=== PATIENT | female | born 1995 | race Caucasian/White ===

== ENCOUNTER 2018-05-16 08:50 | Inpatient (IN) ==
--- NOTE | 2018-05-16 09:28 | ED ---
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 Spencer Chief Complaint: Contractions History of Present Illness: 23-year-old at 39+ weeks presents complaining of contractions. care with Dr. Power. Patient and her significant other ate yesterday at [employer] he felt ill right away she did not feel well this morning and began having contractions. Obstetrical history stable thrombocytopenia. 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 Weeks Gestation:: 39 Para: 0 : 1 Review of Systems All other systems reviewed negative except as stated in HPI Medications and Allergies Allergies Allergy/AdvReac Type Severity Reaction Status Date / Time No Known Allergies Allergy Verified 05/16/18 10:26 Exam Vital signs: Vital Signs 05/16/18 09:08 05/16/18 09:13 Temperature 97.8 F Pulse Rate 76 78 Respiratory Rate 18 Blood Pressure 138/94 H 138/84 Narrative: GENERAL: Well-nourished, well-developed patient, but she does appear ill SKIN: Warm and dry. HEAD: Normocephalic and atraumatic. EYES: No scleral icterus. No injection or drainage. ENT: No nasal drainage noted. Mucous membranes pink. Airway patent. NECK: Supple, trachea midline. No JVD. CARDIOVASCULAR: Regular rate and rhythm without murmurs, gallops, or rubs. RESPIRATORY: Breath sounds equal bilaterally. No accessory muscle use. BREASTS: Bilateral exam showed no masses , no retractions, no nipple discharge. ABDOMEN/GI: Abdomen soft, non-tender, bowel sounds present, no rebound, no guarding Gravid to 39 weeks size Fundal Height: 39 GENITOURINARY: External Genitalia: intact and normal in appearance BUS glands: Normal Cervix: Soft Dilatation: 3 Effacement: 80 Station: -1 Presentation: Vertex Membranes: Intact Uterine Contractions: Present FHT's: Category: 1 early decelerations present on occasion Variability: Moderate EXTREMITIES: No cyanosis or edema. BACK: Nontender without obvious deformity. No CVA tenderness. NEUROLOGICAL: Awake and alert. Motor and sensory grossly within normal limits. Five out of 5 muscle strength in all muscle groups. Normal speech. Assessment and Plan - Diagnosis (1) Uterine contractions Status: Acute (2) Food poisoning Code(s): T62.91XA - Toxic effect of unspecified noxious substance eaten as food , accidental (unintentional), initial encounter Status: Suspected (3) 39 weeks gestation of Code(s): Z3A.39 - 39 weeks gestation of Status: Acute - Plan BPs are noted to be mildly elevated however suspect secondary to contractions- patient cervix is favorable we will have her ambulate times 1 hour and will reevaluate for possibility of onset of labor. Will contact office for GBS status patient is not aware. Discussed with Dr. Power-patient does appear somewhat ill and dehydrated also clinically suspect onset of labor she agrees with the plan to admit Discharge Plan - Discharge Disposition Patient Disposition: ED Admit(ED Internal Use Only) - Discharge Condition Condition: Stable - Physicians Team ED Provider: Barbra Deshpande Primary Care Provider: Primary Care MaxNo - Discharge Instructions Print Language: Frisian
[2018-05-16] MEDS ORDERED: Naloxone Inj 0.4 MG/ML Vial IV.PUSH PRN ×2 (10:32→18:08)
[2018-05-16] MEDS ORDERED: fentaNYL Citrate Inj 100 MCG/2 ML Ampul IV.PUSH PRN ×2 (10:32)
[2018-05-16] MEDS ORDERED: Oxytocin 30 Units/500ml Premix 30 UNITS/500 ML BAG IV.SIG ONE (10:32)
[2018-05-16] MEDS ORDERED: Sod Chloride 0.9% Inj 1,000 ML IV.CONT PRN (10:32)
[2018-05-16] MEDS ORDERED: Penicillin G Potassium Inj 5,000,000 UNIT in Sodium Chloride 0.9% Inj 100 ML IV.SIG ONE (10:32)
[2018-05-16] MEDS ORDERED: Sodium Chlor 0.9% Inj 500 ML IV.SIG PRN (10:32)
--- NOTE | 2018-05-16 10:32 | P.HPOB ---
Patient Name: Tammi Shipman Date of : [birth year] Patient Status: Emergency Emergency Provider: CharleeChrissBarbra Date: 05/16/18 09:22 Initialization Date: 05/16/18 09:22 History of Present Illness Primary Care Physician: No Primary Care Physician-classification control clerk Dr. Spencer Chief Complaint: Contractions History of Present Illness: 23-year-old at 39+ weeks presents complaining of contractions. care with Dr. Power. Patient and her significant other ate yesterday at [employer] he felt ill right away she did not feel well this morning and began having contractions. Obstetrical history stable thrombocytopenia. 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 Weeks Gestation:: 39 Para: 0 : 1 Review of Systems All other systems reviewed negative except as stated in HPI Medications and Allergies Allergies Allergy/AdvReac Type Severity Reaction Status Date / Time No Known Allergies Allergy Verified 05/16/18 10:26 Exam Vital signs: Vital Signs 05/16/18 09:08 05/16/18 09:13 Temperature 97.8 F Pulse Rate 76 78 Respiratory Rate 18 Blood Pressure 138/94 H 138/84 Narrative: GENERAL: Well-nourished, well-developed patient, but she does appear ill SKIN: Warm and dry. HEAD: Normocephalic and atraumatic. EYES: No scleral icterus. No injection or drainage. ENT: No nasal drainage noted. Mucous membranes pink. Airway patent. NECK: Supple, trachea midline. No JVD. CARDIOVASCULAR: Regular rate and rhythm without murmurs, gallops, or rubs. RESPIRATORY: Breath sounds equal bilaterally. No accessory muscle use. BREASTS: Bilateral exam showed no masses , no retractions, no nipple discharge. ABDOMEN/GI: Abdomen soft, non-tender, bowel sounds present, no rebound, no guarding Gravid to 39 weeks size Fundal Height: 39 GENITOURINARY: External Genitalia: intact and normal in appearance BUS glands: Normal Cervix: Soft Dilatation: 3 Effacement: 80 Station: -1 Presentation: Vertex Membranes: Intact Uterine Contractions: Present FHT's: Category: 1 early decelerations present on occasion Variability: Moderate EXTREMITIES: No cyanosis or edema. BACK: Nontender without obvious deformity. No CVA tenderness. NEUROLOGICAL: Awake and alert. Motor and sensory grossly within normal limits. Five out of 5 muscle strength in all muscle groups. Normal speech. Assessment and Plan - Diagnosis (1) Uterine contractions Status: Acute (2) Food poisoning Code(s): T62.91XA - Toxic effect of unspecified noxious substance eaten as food , accidental (unintentional), initial encounter Status: Suspected (3) 39 weeks gestation of Code(s): Z3A.39 - 39 weeks gestation of Status: Acute - Plan BPs are noted to be mildly elevated however suspect secondary to contractions- patient cervix is favorable we will have her ambulate times 1 hour and will reevaluate for possibility of onset of labor. Will contact office for GBS status patient is not aware. Discussed with Dr. Power-patient does appear somewhat ill and dehydrated also clinically suspect onset of labor she agrees with the plan to admit
[2018-05-16] MEDS ORDERED: Citric Acid/Sodium Citrate Liq 30 ML UDC PO SCH (10:45)
[2018-05-16] MEDS ORDERED: fentaNYL 2MCG-Bupiv 0.125% Epi 150 ML EPIDURAL ONE (11:52)
[2018-05-16 12:15] LABS: Baso % (Auto) 0.2 % (0.0-2.0); Eos % (Auto) 0.2 % (0.0-4.0); Hematocrit 35.9 % (35.0-46.0); Hemoglobin 12.4 gm/dL (11.6-15.3); Mean Corpuscular HGB Conc 34.7 % (32.0-36.0); Mean Corpuscular Hemoglobin 31.9 pg (27.0-34.0); Mean Corpuscular Volume 91.9 fL (80.0-100.0); Mean Platelet Volume 12.1 fL (7.0-11.0); Mono # (Auto) 0.9 th/mm3 (0.0-0.9); Mono % (Auto) 7.6 % (0.0-8.0); Neut # (Auto) 10.3 th/mm3 (1.8-7.7); Platelet Count 89 th/mm3 (150-450); Red Blood Count 3.91 mil/mm3 (4.00-5.30); Red Cell Distribution Width 13.7 % (11.6-17.2); White Blood Count 12.3 th/mm3 (4.0-11.0)
[2018-05-16 12:27] LABS: Amorphous Sediment,Urine Rare /hpf; Bacteria,Urine Few /hpf; Bilirubin,Urine Negative (Negative); Clarity,Urine Hazy (Clear); Color,Urine Yellow (Yellw/Straw); Glucose,Urine (UA) Negative (Negative); Leukocyte Esterase,Urine Moderate (Negative); Mucus,Urine Few /lpf (Occasional); Nitrite,Urine Negative (Negative); Specific Gravity,Urine 1.009 (1.002-1.035); Squamous Epithelial Cell,Urine 18 /hpf (0-5)
[2018-05-16 12:28] LABS: Amphetamine Urine With Conf Neg (Neg); Benzodiazepine Urine With Conf Neg (Neg); Cocaine Urine With Conf Neg (Neg); Opiates Urine With Conf Neg (Neg)
[2018-05-16 12:36] LABS: Cannabinoid Urine With Conf Neg (Neg)
[2018-05-16 12:47] LABS: Platelet Morphology Normal (Normal)
[2018-05-16] MEDS ORDERED: Lidocaine PF 1% Inj 5 ML Vial ONE (14:12)
[2018-05-16] MEDS ORDERED: Lidocaaine 1.5%/Epinephrine 1:200,000 PF Inj 5 ML Amp ONE (14:12)
[2018-05-16] MEDS ORDERED: Penicillin G Potassium Inj 2,500,000 UNIT in Sodium Chlor 0.9% Inj 100 ML IV.SIG SCH (14:33)
[2018-05-16] MEDS ORDERED: fentaNYL 2MCG-Bupiv 0.125% Epi 150 ML EPIDURAL PRN (15:00)
[2018-05-16] MEDS ORDERED: fentaNYL Citrate Inj 100 MCG/2 ML Ampul EPIDURAL ONE (15:00)
[2018-05-16] MEDS ORDERED: Diphtheria/Tetanus/Pertussis Vaccine Inj 0.5 ML Syringe IM ONE (16:00)
[2018-05-16] MEDS ORDERED: Measles/Mumps/Rubella Vaccine Inj 0.5 ML Vial SQ ONE (16:00)
--- NOTE | 2018-05-16 18:07 | P.OBDELI ---
Weeks Gestation: 39 Patient Started Active Labor: Yes Medical Induction of Labor: No Artificial Rupture of Membrane: No Anesthesia: Epidural Episiotomy: none Vaginal Delivery: Normal Presentation: Occiput anterior, Compound (left arm) Nuchal Cord: None Delayed Cord Clamping (45 sec): Yes Placenta: Spontaneous delivery, Intact, 3 vessel cord, Other (marginal cord insertion) Laceration: 1 deg (left labial) Repair: Chromic interrupted (3-0 chromic on SH) Infant Female A Infant Delivery Date: 05/16/18 Delivery Time: 17:52 score (1 min): 9 score (5 min): 9
[2018-05-16] MEDS ORDERED: Zolpidem Tartrate 5 MG Tablet PO PRN (18:08)
[2018-05-16] MEDS ORDERED: Bisacodyl 10 MG Supp RECTAL PRN (18:08)
[2018-05-16] MEDS ORDERED: Benzocaine 20% Top Spray 60 ML Can TOPICAL PRN (18:08)
[2018-05-16] MEDS ORDERED: Oxytocin 30 Units/500ml Premix 30 UNITS/500 ML BAG IV.CONT PRN (18:08)
[2018-05-16] MEDS ORDERED: Witch Hazel 50%/Glyderin 12.5% 40 Pad Jar RECTAL PRN (18:08)
[2018-05-16] MEDS: Acetaminophen 325 MG Tablet PO PRN (20:49)
[2018-05-17] MEDS: Senna/Docusate Sodium 8.6/50 MG Tablet PO SCH ×3 (00:10→20:46)
[2018-05-17] MEDS: Acetaminophen 325 MG Tablet PO PRN ×2 (08:55→17:18)
[2018-05-17] MEDS ORDERED: Influenza (Quadrivalent) Vaccine 0.5 ML Syringe IM ONE (09:30)
--- NOTE | 2018-05-17 12:20 | P.PNOB ---
Subjective Post day: 1 Interval history: PPD#1; Stable ,doing well, not breast feeding Objective Vital Signs/I&O: Vital Signs 05/16/18 12:51 05/16/18 12:55 05/16/18 13:00 Temperature Pulse Rate 69 72 72 Respiratory Rate 18 Blood Pressure 145/115 H 147/92 H 144/74 H 05/16/18 13:20 05/16/18 13:25 05/16/18 13:40 Temperature Pulse Rate 74 71 71 Respiratory Rate Blood Pressure 145/81 H 142/82 H 135/85 05/16/18 13:41 05/16/18 13:45 05/16/18 14:00 Temperature Pulse Rate 69 72 72 Respiratory Rate 18 Blood Pressure 133/75 140/80 131/76 05/16/18 14:25 05/16/18 14:40 05/16/18 15:25 Temperature Pulse Rate 78 67 86 Respiratory Rate Blood Pressure 127/81 115/66 155/95 H 05/16/18 15:50 05/16/18 15:55 05/16/18 16:10 Temperature Pulse Rate 73 75 78 Respiratory Rate Blood Pressure 132/87 108/61 05/16/18 16:15 05/16/18 16:20 05/16/18 16:25 Temperature Pulse Rate 81 75 73 Respiratory Rate Blood Pressure 05/16/18 16:30 05/16/18 16:55 05/16/18 17:10 Temperature Pulse Rate 72 80 97 H Respiratory Rate Blood Pressure 120/62 125/76 05/16/18 17:20 05/16/18 17:25 05/16/18 17:30 Temperature Pulse Rate 88 87 91 H Respiratory Rate Blood Pressure 113/83 05/16/18 17:40 05/16/18 18:00 05/16/18 18:15 Temperature Pulse Rate 91 H 92 H 76 Respiratory Rate 17 Blood Pressure 146/75 H 149/85 H 05/16/18 18:30 05/16/18 18:32 05/16/18 18:50 Temperature 99.1 F Pulse Rate 79 78 Respiratory Rate 18 17 Blood Pressure 146/87 H 128/66 05/16/18 19:05 05/16/18 20:00 05/16/18 20:05 Temperature 99.0 F Pulse Rate 108 H 79 Respiratory Rate 18 18 Blood Pressure 120/86 117/69 05/16/18 20:35 05/17/18 08:00 Temperature 98.0 F 98.2 F Pulse Rate 72 75 Respiratory Rate 18 20 Blood Pressure 130/75 139/74 Intake & Output 05/16/18 05/17/18 05/17/18 18:59 06:59 18:59 Weight 64.41 kg Result Diagrams: 05/16/18 11:28 Objective Remarks: GENERAL: Well-nourished, well-developed patient. CARDIOVASCULAR: Regular rate and rhythm without murmurs, gallops, or rubs. RESPIRATORY: Breath sounds equal bilaterally. No accessory muscle use. ABDOMEN/GI: Abdomen soft, non-tender. Fundus: Firm, non-tender at umbilicus. GENITOURINARY: Light to moderate bleeding. EXTREMITIES: No cyanosis or edema, non-tender, without signs of DVT. Medications and IVs: Active Medications Acetaminophen (Tylenol) 650 mg PO Q4H PRN PRN Reason: PAIN SCALE 1 TO 2 Last Admin: 05/17/18 08:55 Dose: 650 mg Al Hydroxide/Mg Hydroxide (Milk Of Magnesia Liq) 30 ml PO Q12H PRN PRN Reason: Mild Constipation Benzocaine (Americaine 20% Top [place]) 1 spray TOPICAL Q4H PRN PRN Reason: For Perineum Discomfort Bisacodyl (Dulcolax Supp) 10 mg RECTAL DAILY PRN PRN Reason: SEVERE CONSITIPATION Oxytocin (Pitocin 30 Units/Ns 500 Ml Premix) 30 units in 500 mls @ 100 mls/hr IV.CONT UNSCH PRN PRN Reason: Heavy bleeding Ibuprofen (Motrin) 800 mg PO Q8H PRN PRN Reason: For Cramping Last Admin: 05/17/18 08:55 Dose: 800 mg Lactulose (Lactulose Liq) 30 ml PO DAILY PRN PRN Reason: SEVERE CONSITIPATION Naloxone HCl (Narcan Inj) 0.1 mg IV.PUSH Q2M PRN PRN Reason: for opiate reversal Ondansetron HCl (Zofran Odt) 4 mg PO Q6H PRN PRN Reason: NAUSEA OR VOMITING Senna/Docusate Sodium (Flakita-Colace) 1 tab PO BID ALISTAIR Last Admin: 05/17/18 08:55 Dose: 1 tab Sennosides (Senokot) 17.2 mg PO Q12H PRN PRN Reason: Moderate Constipation Sodium Chloride (Ns Flush) 2 ml IV.FLUSH BID ALISTAIR Last Admin: 05/17/18 10:45 Dose: Not Given Sodium Chloride (Ns Flush) 2 ml IV.FLUSH PRN PRN PRN Reason: FLUSH AFTER USING IV ACCESS Witch Nydia/Glycerin (Tucks Pads) 1 applicatio RECTAL QID PRN PRN Reason: HEMORRHOIDS Zolpidem Tartrate (Ambien) 5 mg PO HS PRN PRN Reason: SLEEP Assessment and Plan - Plan PPD#1, transitioning well, Discharge Planning: PPD#2
[2018-05-17 20:03] VITALS: RESP 18
[2018-05-18] MEDS: Acetaminophen 325 MG Tablet PO PRN ×2 (01:43→10:30)
[2018-05-18 09:14] VITALS: BP 129/85; PULSE 71; TEMP 98.2
--- NOTE | 2018-05-18 10:23 | P.PNOB ---
Subjective Post day: 2 Interval history: PPD#2, s/p , stable ,doing well, plan discharge today Objective Vital Signs/I&O: Vital Signs 05/17/18 20:00 05/18/18 08:00 Temperature 98.1 F 98.2 F Pulse Rate 78 71 Respiratory Rate 18 18 Blood Pressure 157/90 H 129/85 Result Diagrams: 05/16/18 11:28 Objective Remarks: GENERAL: Well-nourished, well-developed patient. CARDIOVASCULAR: Regular rate and rhythm without murmurs, gallops, or rubs. RESPIRATORY: Breath sounds equal bilaterally. No accessory muscle use. ABDOMEN/GI: Abdomen soft, non-tender. Fundus: Firm, non-tender at umbilicus. GENITOURINARY: Light to moderate bleeding. EXTREMITIES: No cyanosis or edema, non-tender, without signs of DVT. Medications and IVs: Active Medications Acetaminophen (Tylenol) 650 mg PO Q4H PRN PRN Reason: PAIN SCALE 1 TO 2 Last Admin: 05/18/18 01:43 Dose: 650 mg Al Hydroxide/Mg Hydroxide (Milk Of Magnesia Liq) 30 ml PO Q12H PRN PRN Reason: Mild Constipation Benzocaine (Americaine 20% Top [place]) 1 spray TOPICAL Q4H PRN PRN Reason: For Perineum Discomfort Last Admin: 05/17/18 20:46 Dose: 1 spray Bisacodyl (Dulcolax Supp) 10 mg RECTAL DAILY PRN PRN Reason: SEVERE CONSITIPATION Oxytocin (Pitocin 30 Units/Ns 500 Ml Premix) 30 units in 500 mls @ 100 mls/hr IV.CONT UNSCH PRN PRN Reason: Heavy bleeding Ibuprofen (Motrin) 800 mg PO Q8H PRN PRN Reason: For Cramping Last Admin: 05/18/18 01:43 Dose: 800 mg Lactulose (Lactulose Liq) 30 ml PO DAILY PRN PRN Reason: SEVERE CONSITIPATION Naloxone HCl (Narcan Inj) 0.1 mg IV.PUSH Q2M PRN PRN Reason: for opiate reversal Ondansetron HCl (Zofran Odt) 4 mg PO Q6H PRN PRN Reason: NAUSEA OR VOMITING Senna/Docusate Sodium (Flakita-Colace) 1 tab PO BID ALISTAIR Last Admin: 05/17/18 20:46 Dose: 1 tab Sennosides (Senokot) 17.2 mg PO Q12H PRN PRN Reason: Moderate Constipation Sodium Chloride (Ns Flush) 2 ml IV.FLUSH BID ALISTAIR Last Admin: 05/17/18 20:47 Dose: Not Given Sodium Chloride (Ns Flush) 2 ml IV.FLUSH PRN PRN PRN Reason: FLUSH AFTER USING IV ACCESS Witch Nydia/Glycerin (Tucks Pads) 1 applicatio RECTAL QID PRN PRN Reason: HEMORRHOIDS Last Admin: 05/17/18 20:46 Dose: 1 applicatio Zolpidem Tartrate (Ambien) 5 mg PO HS PRN PRN Reason: SLEEP Assessment and Plan - Plan PPD#2, transitioning well, Stable for discharge; return to office in 2 weeks Discharge Planning: PPD#2
[2018-05-18] MEDS: Senna/Docusate Sodium 8.6/50 MG Tablet PO SCH (10:30)
== END 2018-05-18 13:01 | disposition home or self-care (01) ==
LOC: HOBED 08:50 → H2E 10:36 → H1EA 20:34
PROVIDERS: ADMIT Obstetrics & Gynecology; ATTEND Obstetrics & Gynecology